=== PATIENT | male | born 1975 | race Caucasian/White ===

== ENCOUNTER 2021-07-20 10:26 | Emergency (ER) | payer OTHER ==
[~2021-07-20] VITALS: Ht 165.1 cm; Wt 70.5 kg
[2021-07-20 12:05] VITALS: BP 134/77
== END 2021-07-20 13:01 | disposition home or self-care (01) ==
LOC: EMS 10:32
DX: Z11.1 Encounter for screening for respiratory tuberculosis (principal); R61 Generalized hyperhidrosis
CPT/HCPCS: 71046; 93005; 99283